=== PATIENT | female | born 1950 ===

== ENCOUNTER → 2018-10-03 | Outpatient (CLI) | payer MEDICARE ==
[~2018-10-03] MED LIST: AMLO10 PO; ASPI81CH PO; ATOR20; Acephen650 MG PR; Anusol-HC 2.5%30 GM PR; Bisac-Evac10 MG PR; CODACE30 PO; DIAZ2; EYE DROPS; FISH OIL 1,0001 EAC1 PO; GABA300 PO; Humalog100 UNIT/1 SC; INSUGL100V SC; LACTULOSE20 GM/30 M PO; LISI20 PO; Lantus100 UNIT/1; METF500 PO; METO5A PO; MICROZIDE12.5 M1 PO; MIRALAX17 GM PO; MUPI2TC TOP; OMEPRAZOLE MAGN20 MG; SENN187 PO; Ultram50 MG PO; XIIDRA1 EACH
[2018-10-03 13:28] LABS: Protein, Urine Quantitative 163.6 mg/dL (0.0-11.9)
== END | disposition home or self-care (01) ==
LOC: LAB SHORT 10:39 → LAB 10:39
PROVIDERS: Internal Medicine
DX: N18.3 Chronic kidney disease, stage 3 (moderate) (principal)
CPT/HCPCS: 81050; 84156

== ENCOUNTER 2020-03-10 00:38 | Emergency (ER) | payer MEDICARE ==
[~2020-03-10] VITALS: Ht 160 cm; Wt 136.1 kg
[2020-03-10] MEDS ORDERED: XARELTO20 M1 PO (00:52)
== END 2020-03-10 02:04 | disposition home or self-care (01) ==
LOC: ER 00:38
DX: S09.90XA Unspecified injury of head, initial encounter (principal); I10 Essential (primary) hypertension; E11.9 Type 2 diabetes mellitus without complications; Z88.5 Allergy status to narcotic agent; Z91.048 Other nonmedicinal substance allergy status; Z79.4 Long term (current) use of insulin; Z79.82 Long term (current) use of aspirin; Z79.899 Other long term (current) drug therapy; W22.8XXA Striking against or struck by other objects, initial encounter
CPT/HCPCS: 36415; 70450; 72125; 99284-25; A9270

== ENCOUNTER 2020-11-19 17:25 | Emergency (ER) | payer MEDICARE ==
[~2020-11-19] VITALS: Ht 160 cm; Wt 93.0 kg
[~2020-11-19 17:25] MED LIST changes: +XARELTO20 M1 PO
[2020-11-19] MEDS ORDERED: OZEMPIC0.25 MG/0. SQ (18:20)
== END 2020-11-19 19:24 | disposition home or self-care (01) ==
LOC: ER 17:25
DX: S09.90XA Unspecified injury of head, initial encounter (principal); I10 Essential (primary) hypertension; Z88.5 Allergy status to narcotic agent; Z91.09 Other allergy status, other than to drugs and biological substances; Z79.4 Long term (current) use of insulin; Z79.01 Long term (current) use of anticoagulants; W18.2XXA Fall in (into) shower or empty bathtub, initial encounter; Y93.E1 Activity, personal bathing and showering; Y92.002 Bathroom of unspecified non-institutional (private) residence as the place of occurrence of the external cause
CPT/HCPCS: 70450; 99283-25; A9270

== ENCOUNTER 2021-04-10 17:56 | Emergency (ER) | payer MEDICARE ==
[~2021-04-10] VITALS: Ht 160 cm; Wt 93.0 kg
[~2021-04-10 17:56] MED LIST changes: +OZEMPIC0.25 MG/0. SQ
[2021-04-10 18:41] LABS: BASOPHILS ABSOLUTE AUTO 0.05 K/mm3 (0.00-0.23); BASOPHILS PERCENT AUTO 0 % (0-2); EOSINOPHILS ABSOLUTE AUTO 0.27 K/mm3 (0.00-0.68); EOSINOPHILS PERCENT AUTO 2 % (0-6); Hematocrit 31.1 % (33.0-51.0); Hemoglobin 10.3 g/dL (11.5-16.0); IMMATURE GRAN ABSOLUTE AUTO 0.02 K/mm3 (0.00-0.10); IMMATURE GRAN PERCENT AUTO 0 % (0-1); LYMPHOCYTES ABSOLUTE AUTO 2.69 K/mm3 (0.84-5.20); LYMPHOCYTES PERCENT AUTO 24 % (21-46); MONOCYTES ABSOLUTE AUTO 0.89 K/mm3 (0.16-1.47); MONOCYTES PERCENT AUTO 8 % (4-13); Mean Corpuscular HGB 36.1 pg (26.0-34.0); Mean Corpuscular HGB Conc 33.1 g/dL (31.5-36.5); Mean Corpuscular Volume 109 fL (80-100); Mean Platelet Volume 9.9 fL (9.1-12.4); NEUTROPHILS ABSOLUTE AUTO 7.37 K/mm3 (1.96-9.15); NEUTROPHILS PERCENT AUTO 65 % (41-73); Platelet Count 327 K/mm3 (150-400); RDW Coefficient Variation 12.6 % (11.7-14.2); RDW Standard Deviation 50.1 fL (35.1-46.3); Red Blood Cell Count 2.85 M/mm3 (3.80-5.20); White Blood Cell Count 11.29 K/mm3 (4.00-11.30)
[2021-04-10 19:03] LABS: Alanine Aminotransfer (ALT/SGP 17 U/L (12-78); Albumin, Blood 3.2 g/dL (3.4-5.0); Albumin/Globulin Ratio 0.8 (0.8-1.8); Alk Phos 101 U/L (50-136); Anion Gap 7 mmol/L (6-16); Aspartate Aminotrans (AST/SGOT 14 U/L (12-37); Bilirubin, Total 0.2 mg/dL (0.1-1.0); Blood Urea Nitrogen 44 mg/dL (8-24); Bun/Creatinine Ratio 19.4 (12.0-20.0); CO2, Blood 21 mmol/L (21-32); Calcium, Blood 9.4 mg/dL (8.5-10.1); Chloride, Blood 112 mmol/L (98-108); Creatinine, Blood 2.27 mg/dL (0.40-1.00); Glomerular Filtration Rate 23 (60-); Glucose, Blood 93 mg/dL (70-99); Potassium, Blood 4.5 mmol/L (3.5-5.5); Sodium, Blood 140 mmol/L (136-145); Total Protein, Blood 7.2 g/dL (6.4-8.2); Troponin I <0.015 ng/mL (0.000-0.040)
== END 2021-04-10 21:24 | disposition home or self-care (01) ==
LOC: ER 17:56
PROVIDERS: Physician Assistant
DX: J98.01 Acute bronchospasm (principal); R47.9 Unspecified speech disturbances; I10 Essential (primary) hypertension; Z79.4 Long term (current) use of insulin; Z79.01 Long term (current) use of anticoagulants; Z79.82 Long term (current) use of aspirin; Z79.899 Other long term (current) drug therapy; Z88.5 Allergy status to narcotic agent; Z91.09 Other allergy status, other than to drugs and biological substances
CPT/HCPCS: 36415; 70450; 71046; 80053; 84484; 85025; 85379; 93005; 93010; 94640; 94664; 99285-25; A9270

== ENCOUNTER 2022-11-14 00:03 | Observation (INO) | payer MEDICARE ==
[~2022-11-14] VITALS: Ht 160 cm; Wt 90.0 kg
[~2022-11-14 00:03] MED LIST changes: +BASAGLAR K100 UNIT/3 SC; +HUMALOG100 UNIT/1 SC; -Humalog100 UNIT/1 SC; -INSUGL100V SC
[2022-11-14 00:39] LABS: BASOPHILS ABSOLUTE AUTO 0.02 K/mm3 (0.00-0.23); BASOPHILS PERCENT AUTO 0 % (0-2); EOSINOPHILS ABSOLUTE AUTO 0.12 K/mm3 (0.00-0.68); EOSINOPHILS PERCENT AUTO 1 % (0-6); Hematocrit 18.7 % (33.0-51.0); Hemoglobin 6.4 g/dL (11.5-16.0); IMMATURE GRAN ABSOLUTE AUTO 0.04 K/mm3 (0.00-0.10); IMMATURE GRAN PERCENT AUTO 0 % (0-1); LYMPHOCYTES ABSOLUTE AUTO 3.55 K/mm3 (0.84-5.20); LYMPHOCYTES PERCENT AUTO 27 % (21-46); MONOCYTES ABSOLUTE AUTO 0.82 K/mm3 (0.16-1.47); MONOCYTES PERCENT AUTO 6 % (4-13); Mean Corpuscular HGB 37.2 pg (26.0-34.0); Mean Corpuscular HGB Conc 34.2 g/dL (31.5-36.5); Mean Corpuscular Volume 109 fL (80-100); Mean Platelet Volume 10.3 fL (9.1-12.4); NEUTROPHILS ABSOLUTE AUTO 8.86 K/mm3 (1.96-9.15); NEUTROPHILS PERCENT AUTO 66 % (41-73); Platelet Count 275 K/mm3 (150-400); RDW Coefficient Variation 12.8 % (11.7-14.2); RDW Standard Deviation 49.8 fL (35.1-46.3); Red Blood Cell Count 1.72 M/mm3 (3.80-5.20); White Blood Cell Count 13.41 K/mm3 (4.00-11.30)
[2022-11-14 01:08] LABS: Albumin, Blood 2.6 g/dL (3.4-5.0); Albumin/Globulin Ratio 0.9 (0.8-1.8); Bilirubin, Total 0.3 mg/dL (0.1-1.0); Bun/Creatinine Ratio 37.5 (12.0-20.0); Calcium, Blood 9.7 mg/dL (8.5-10.1); Creatinine, Blood 3.33 mg/dL (0.40-1.00); Potassium, Blood 3.7 mmol/L (3.5-5.5); Total Protein, Blood 5.6 g/dL (6.4-8.2)
[2022-11-14 02:45] LABS: Source, Urine Voided
[2022-11-14 03:19] LABS: Appearance, Urine Hazy (Clear); Bilirubin, Urine Neg (Neg); Blood, Urine 5+ (Neg); Color, Urine Yellow (P-Yellow); Glucose Qualitative, Urine Neg (Neg); Ketones, Urine Neg (Neg); Leukocyte Esterase, Urine 1+ (Neg); Nitrite, Urine Neg (Neg); Protein, Urine 2+ (Neg); Urobilinogen, Urine NORM (Normal)
[2022-11-14 03:23] LABS: Red Blood Cells, Urine 0-2 /hpf (0-2); Squamous Epithelial Cells Mod /hpf (Few)
[2022-11-14 03:24] LABS: Bacteria Many /hpf
[2022-11-14 04:05] LABS: Source, Urine Straight Cath
[2022-11-14 04:15] LABS: Appearance, Urine Clear (Clear); Bilirubin, Urine Neg (Neg); Blood, Urine Neg (Neg); Color, Urine Yellow (P-Yellow); Glucose Qualitative, Urine Neg (Neg); Ketones, Urine Neg (Neg); Leukocyte Esterase, Urine Neg (Neg); Nitrite, Urine Neg (Neg); Protein, Urine 2+ (Neg); Specific Gravity, Urine 1.015 (1.003-1.022); Urobilinogen, Urine NORM (Normal)
[2022-11-14 04:48] LABS: Bacteria Rare /hpf; Red Blood Cells, Urine 0-2 /hpf (0-2); Squamous Epithelial Cells Mod /hpf (Few); White Blood Cells, Urine 0-2 /hpf (0-5)
[2022-11-14 15:13] LABS: Hematocrit 26.9 % (33.0-51.0); Hemoglobin 9.4 g/dL (11.5-16.0)
[2022-11-14 15:31] LABS: Percent Saturation 104.9 % (15.0-50.0)
[2022-11-14] MEDS ORDERED: ASCO500 PO (15:37)
[2022-11-14] MEDS ORDERED: Vitamin D1000 UNI1 PO (15:37)
[2022-11-14] MEDS ORDERED: Loratadine10 MG PO (15:38)
[2022-11-14] MEDS ORDERED: LISI20 PO (15:39)
--- NOTE | 2022-11-14 16:14 | NUR ---
0807- MD GOMEZ GAVE VERBAL FOR 2 UNITS OF RBCS TO BE INFUSED AND A REPEAT H&H 30 MINS AFTER LAST UNIT IS COMPLETE.
--- NOTE | 2022-11-14 17:52 | NUR ---
SHIFT SUMMARY-PT AAOX4 THIS SHIFT. X1 TO THE BSC. HGB 6.4 THIS AM AND UP TO 9.4 AFTER 2 UNITS RBCS. PT CALLING APPROPRIATELY. DIET ADVANCED FROM NPO TO FULL LIQUID. PT TOLERATING WELL.
[2022-11-15 05:12] LABS: Hematocrit 23.2 % (33.0-51.0); Hemoglobin 8.1 g/dL (11.5-16.0); Mean Corpuscular HGB 34.3 pg (26.0-34.0); Mean Corpuscular HGB Conc 34.9 g/dL (31.5-36.5); Mean Platelet Volume 9.9 fL (9.1-12.4); Platelet Count 199 K/mm3 (150-400); RDW Coefficient Variation 18.6 % (11.7-14.2); RDW Standard Deviation 66.6 fL (35.1-46.3); Red Blood Cell Count 2.36 M/mm3 (3.80-5.20); White Blood Cell Count 10.14 K/mm3 (4.00-11.30)
--- NOTE | 2022-11-15 05:41 | NUR ---
A/OX4; CALM AND COOPERATIVE. SBA TO BSC. DENIED PAIN T/O SHIFT. NO BLOODY STOOLS THIS SHIFT (AND NONE LAST SHIFT PER REPORT). SLEEP PROMOTED. CALL LIGHT IN REACH; ENCOURAGED TO MAKE NEEDS KNOWN. BED ALARM SET.
[2022-11-15 05:47] LABS: Mean Corpuscular Volume 98 fL (80-100)
[2022-11-15 08:14] LABS: Bun/Creatinine Ratio 35.5 (12.0-20.0); Calcium, Blood 9.3 mg/dL (8.5-10.1); Creatinine, Blood 2.93 mg/dL (0.40-1.00); Potassium, Blood 4.9 mmol/L (3.5-5.5)
[2022-11-15 12:48] LABS: Hematocrit 25.4 % (33.0-51.0); Hemoglobin 8.5 g/dL (11.5-16.0)
--- NOTE | 2022-11-15 17:48 | NUR ---
PT AAOX4 THIS SHIFT WITH NO ISSUES. NO BLOODY STOOLS SINCE ADMISSION. SBA TO BSC. PT TO BE NPO AT 0000 TONIGHT FOR GI SCOPE TOMORROW. NO PAIN TODAY.
[2022-11-16 05:07] LABS: Hematocrit 21.4 % (33.0-51.0); Hemoglobin 7.5 g/dL (11.5-16.0); Mean Corpuscular HGB 34.6 pg (26.0-34.0); Mean Corpuscular Volume 99 fL (80-100); Mean Platelet Volume 10.2 fL (9.1-12.4); Platelet Count 190 K/mm3 (150-400); RDW Coefficient Variation 17.4 % (11.7-14.2); RDW Standard Deviation 62.9 fL (35.1-46.3); Red Blood Cell Count 2.17 M/mm3 (3.80-5.20); White Blood Cell Count 7.26 K/mm3 (4.00-11.30)
[2022-11-16 05:35] LABS: Bun/Creatinine Ratio 31.3 (12.0-20.0); Calcium, Blood 9.5 mg/dL (8.5-10.1); Creatinine, Blood 2.68 mg/dL (0.40-1.00); Potassium, Blood 5.1 mmol/L (3.5-5.5)
--- NOTE | 2022-11-16 09:00 | NUR ---
PT SHARON GOINS A/O. 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 H/R REG, NO MURMUR NOTED. NO EDEMA NOTED. LUNGS CLEAR, RESP EASY, UNLABORED. ON R.A. BT X4 LAST BM COUPLE DAYS. PRESENTLY NPO FOR ENDOSCOPY THIS AFT. ICE OKAY UNTIL 1100. VOIDS BSC. 1 ASST. BED IN LOW POSITION, CALL LITE IN REACH, CALLS APPROP
--- NOTE | 2022-11-16 11:00 | NUR ---
1100 PT FULLY NPO AT 1100.
--- NOTE | 2022-11-16 12:55 | NUR ---
TO DAY SURG AT THIS TIME.
--- NOTE | 2022-11-16 14:37 | NUR ---
1437 PT RETURNED TO ROOM FROM SCOPE. RN STATES DR ARIANNE DIAZED FOOD NOW. WILL MAKE ORDRES. STATES NO CURRENT BLEEDING FROM [facility].
--- NOTE | 2022-11-16 14:46 | NUR ---
11/16/22 1446 Sarbjit Bellamy HISTORY, CHART, MEDICATIONS AND ALLERGIES REVIEWED BEFORE START OF PROCEDURE. PATIENT CONFIRMS NPO STATUS AND AGREES WITH SCHEDULED PROCEDURE. 3-LEAD EKG REVIEWED WITH PHYSICIAN PRIOR TO START OF PROCEDURE. MONITOR INTACT WITH CONTINUOUS PULSE OXIMETRY,CAPNOGRAPHY, 3-LEAD EKG, INTERMITTENT BP. SUPPLEMENTAL O2 TO BE TITRATED THROUGHOUT PROCEDURE TO MAINTAIN O2 SATURATION ABOVE 90%. PATIENT DETERMINED TO BE ASA APPROPRIATE FOR PROPOFOL SEDATION PRIOR TO START OF PROCEDURE BY
--- NOTE | 2022-11-16 17:48 | NUR ---
CALLED DR JASON CUMMINS LOW DIASTOLIC BP. ORDERS FOR 500 NS BOLUS. DONE.
--- NOTE | 2022-11-16 18:21 | NUR ---
PT HAD SCOPE TODAY. NO CONCERNS NOTED. RN STATES DR SAID NO CURRENT BLEEDING. OKAYED DIET TODAY. PT LAURA WELL. SOFT DIASTOLIC BP. DISCUSSED WITH DR GOMEZ, 500 BOLUS ORDERED AND ADMIN. WILL MONITOR BP. PT CONTINUES TO BE PLEASANT AND TALKATIVE. NO OTHER CONCERNS NOTED. BED IN LOW POSITION, CALL LITE IN REACH, CALLS APPROP
[2022-11-17 04:57] LABS: Hematocrit 23.8 % (33.0-51.0); Hemoglobin 8.1 g/dL (11.5-16.0); Mean Corpuscular HGB 33.9 pg (26.0-34.0); Mean Corpuscular Volume 100 fL (80-100); Mean Platelet Volume 10.3 fL (9.1-12.4); Platelet Count 215 K/mm3 (150-400); RDW Coefficient Variation 16.9 % (11.7-14.2); RDW Standard Deviation 61.3 fL (35.1-46.3); Red Blood Cell Count 2.39 M/mm3 (3.80-5.20); White Blood Cell Count 8.88 K/mm3 (4.00-11.30)
[2022-11-17 05:21] LABS: Bun/Creatinine Ratio 23.9 (12.0-20.0); Calcium, Blood 9.4 mg/dL (8.5-10.1); Creatinine, Blood 2.68 mg/dL (0.40-1.00); Potassium, Blood 4.8 mmol/L (3.5-5.5)
[2022-11-17] MEDS ORDERED: OMEP20ER PO (11:13)
--- NOTE | 2022-11-17 13:06 | NUR ---
pt discharge reviewed with pt . she verbalized understanding meds and inst. iv x2 removed intact. no tele. daughter here to take home. pt wheeled to door by aide at 1225
== END 2022-11-17 12:59 | disposition home or self-care (01) ==
LOC: ER 00:03 → MEDS 06:05
PROVIDERS: Emergency Medicine; Internal Medicine; ADMIT Internal Medicine
DX: D64.9 Anemia, unspecified (principal); K26.9 Duodenal ulcer, unspecified as acute or chronic, without hemorrhage or perforation; K29.50 Unspecified chronic gastritis without bleeding; K31.A19 Gastric intestinal metaplasia without dysplasia, unspecified site; N17.9 Acute kidney failure, unspecified; K59.00 Constipation, unspecified; R42 Dizziness and giddiness; I12.9 Hypertensive chronic kidney disease with stage 1 through stage 4 chronic kidney disease, or unspecified chronic kidney disease; E11.22 Type 2 diabetes mellitus with diabetic chronic kidney disease; N18.9 Chronic kidney disease, unspecified; Z86.718 Personal history of other venous thrombosis and embolism; Z88.5 Allergy status to narcotic agent; Z88.8 Allergy status to other drugs, medicaments and biological substances; Z79.01 Long term (current) use of anticoagulants; Z79.82 Long term (current) use of aspirin; Z79.899 Other long term (current) drug therapy
CPT/HCPCS: 36415; 36430; 51701; 70450; 80048; 80053; 81001; 82272; 82607; 82728; 82746; 82947; 83540; 83550; 83605; 84484; 85014; 85018; 85025; 85027; 86850; 86900; 86901; 86923; 87086; 90686; 93005; 93010; 96361-59; 96374-59; 96375-59; 99285-25; A9270; C9113; J1815; J2550; J2704; J7030; J7040; J7120; P9016

== ENCOUNTER 2022-12-02 22:16 | Emergency (ER) | payer MEDICARE ==
[~2022-12-02] VITALS: Ht 160 cm; Wt 87.1 kg
[~2022-12-02 22:16] MED LIST changes: +ASCO500 PO; +Loratadine10 MG PO; +OMEP20ER PO; +Vitamin D1000 UNI1 PO
[2022-12-02 22:47] LABS: Source, Urine Clean Catch
[2022-12-02 22:49] LABS: Bilirubin, Urine Neg (Neg); Blood, Urine Neg (Neg); Glucose Qualitative, Urine Neg (Neg); Ketones, Urine Neg (Neg); Leukocyte Esterase, Urine 1+ (Neg); Nitrite, Urine Neg (Neg); Protein, Urine 3+ (Neg); Specific Gravity, Urine 1.015 (1.003-1.022); Urobilinogen, Urine NORM (Normal)
[2022-12-02 22:55] LABS: Appearance, Urine Hazy (Clear); Bacteria Few /hpf; Color, Urine Yellow (P-Yellow); Red Blood Cells, Urine Not Seen /hpf (0-2); Squamous Epithelial Cells Many /hpf (Few); White Blood Cells, Urine 0-2 /hpf (0-5)
[2022-12-02 23:13] LABS: BASOPHILS ABSOLUTE AUTO 0.03 K/mm3 (0.00-0.23); BASOPHILS PERCENT AUTO 0 % (0-2); EOSINOPHILS ABSOLUTE AUTO 0.07 K/mm3 (0.00-0.68); EOSINOPHILS PERCENT AUTO 1 % (0-6); Hematocrit 27.9 % (33.0-51.0); Hemoglobin 9.8 g/dL (11.5-16.0); IMMATURE GRAN ABSOLUTE AUTO 0.04 K/mm3 (0.00-0.10); IMMATURE GRAN PERCENT AUTO 0 % (0-1); LYMPHOCYTES ABSOLUTE AUTO 1.67 K/mm3 (0.84-5.20); LYMPHOCYTES PERCENT AUTO 17 % (21-46); MONOCYTES PERCENT AUTO 7 % (4-13); Mean Corpuscular HGB Conc 35.1 g/dL (31.5-36.5); Mean Corpuscular Volume 100 fL (80-100); Mean Platelet Volume 9.6 fL (9.1-12.4); NEUTROPHILS ABSOLUTE AUTO 7.17 K/mm3 (1.96-9.15); NEUTROPHILS PERCENT AUTO 74 % (41-73); Platelet Count 309 K/mm3 (150-400); RDW Coefficient Variation 16.1 % (11.7-14.2); RDW Standard Deviation 59.4 fL (35.1-46.3); White Blood Cell Count 9.68 K/mm3 (4.00-11.30)
[2022-12-02 23:31] LABS: Albumin, Blood 3.2 g/dL (3.4-5.0); Albumin/Globulin Ratio 0.8 (0.8-1.8); Bilirubin, Total 0.2 mg/dL (0.1-1.0); Bun/Creatinine Ratio 17.1 (12.0-20.0); Calcium, Blood 9.3 mg/dL (8.5-10.1); Creatinine, Blood 2.69 mg/dL (0.40-1.00); Potassium, Blood 4.3 mmol/L (3.5-5.5); Total Protein, Blood 7.2 g/dL (6.4-8.2)
[2022-12-02] MEDS ORDERED: MECL25 PO (23:57)
== END 2022-12-03 02:05 | disposition home or self-care (01) ==
LOC: ER 22:16
PROVIDERS: Emergency Medicine
DX: R42 Dizziness and giddiness (principal); K92.2 Gastrointestinal hemorrhage, unspecified; E87.1 Hypo-osmolality and hyponatremia; Z88.5 Allergy status to narcotic agent; Z88.8 Allergy status to other drugs, medicaments and biological substances; Z91.048 Other nonmedicinal substance allergy status; Z79.899 Other long term (current) drug therapy; Z79.4 Long term (current) use of insulin; E11.9 Type 2 diabetes mellitus without complications; I10 Essential (primary) hypertension; Z87.891 Personal history of nicotine dependence
CPT/HCPCS: 36415; 80053; 81001; 82947; 84484; 85025; 86850; 86900; 86901; 93005; 93010; 96360; 99284-25; A9270; J7030

== ENCOUNTER → 2023-01-01 | Outpatient (CLI) | payer MEDICARE ==
[~2023-01-01] MED LIST changes: +MECL25 PO
== END | disposition home or self-care (01) ==
LOC: LAB SHORT 16:30
DX: A04.8 Other specified bacterial intestinal infections (principal)
CPT/HCPCS: 87338

== ENCOUNTER 2023-01-17 13:05 | Emergency (ER) | payer MEDICARE ==
[~2023-01-17] VITALS: Ht 160 cm; Wt 82.1 kg
== END 2023-01-17 15:41 | disposition home or self-care (01) ==
LOC: ER 13:05
DX: M79.671 Pain in right foot (principal); I10 Essential (primary) hypertension; E11.9 Type 2 diabetes mellitus without complications; Z91.048 Other nonmedicinal substance allergy status; Z88.5 Allergy status to narcotic agent; Z79.899 Other long term (current) drug therapy; Z79.4 Long term (current) use of insulin; Z86.718 Personal history of other venous thrombosis and embolism; Z87.891 Personal history of nicotine dependence
CPT/HCPCS: 93971; 99283-25

== ENCOUNTER 2023-06-25 13:14 | Emergency (ER) | payer MEDICARE ==
[~2023-06-25] VITALS: Ht 160 cm; Wt 93.0 kg
[~2023-06-25 13:14] MED LIST changes: -OZEMPIC0.25 MG/0. SQ; +OZEMPIC0.25 MG/02 SC
[2023-06-25 15:20] LABS: BASOPHILS ABSOLUTE AUTO 0.04 K/mm3 (0.00-0.23); BASOPHILS PERCENT AUTO 1 % (0-2); EOSINOPHILS ABSOLUTE AUTO 0.24 K/mm3 (0.00-0.68); EOSINOPHILS PERCENT AUTO 3 % (0-6); Hematocrit 32.1 % (33.0-51.0); IMMATURE GRAN ABSOLUTE AUTO 0.03 K/mm3 (0.00-0.10); IMMATURE GRAN PERCENT AUTO 0 % (0-1); LYMPHOCYTES ABSOLUTE AUTO 1.57 K/mm3 (0.84-5.20); LYMPHOCYTES PERCENT AUTO 21 % (21-46); MONOCYTES ABSOLUTE AUTO 0.58 K/mm3 (0.16-1.47); MONOCYTES PERCENT AUTO 8 % (4-13); Mean Corpuscular HGB 35.6 pg (26.0-34.0); Mean Corpuscular HGB Conc 34.3 g/dL (31.5-36.5); Mean Corpuscular Volume 104 fL (80-100); Mean Platelet Volume 9.9 fL (9.1-12.4); NEUTROPHILS ABSOLUTE AUTO 5.12 K/mm3 (1.96-9.15); NEUTROPHILS PERCENT AUTO 68 % (41-73); Platelet Count 261 K/mm3 (150-400); RDW Coefficient Variation 12.6 % (11.7-14.2); RDW Standard Deviation 47.2 fL (35.1-46.3); Red Blood Cell Count 3.09 M/mm3 (3.80-5.20); White Blood Cell Count 7.58 K/mm3 (4.00-11.30)
[2023-06-25 15:39] LABS: Albumin, Blood 2.3 g/dL (3.4-5.0); Albumin/Globulin Ratio 0.6 (0.8-1.8); Bilirubin, Total 0.2 mg/dL (0.1-1.0); Bun/Creatinine Ratio 14.7 (12.0-20.0); Calcium, Blood 8.2 mg/dL (8.5-10.1); Creatinine, Blood 4.3 mg/dL (0.40-1.00); Potassium, Blood 4.2 mmol/L (3.5-5.5); Total Protein, Blood 6.3 g/dL (6.4-8.2)
[2023-06-25 16:43] LABS: Source, Urine Clean Catch
[2023-06-25 16:48] LABS: Appearance, Urine Clear (Clear); Bilirubin, Urine Neg (Neg); Blood, Urine 1+ (Neg); Glucose Qualitative, Urine 2+ (Neg); Ketones, Urine Neg (Neg); Leukocyte Esterase, Urine Neg (Neg); Nitrite, Urine Neg (Neg); Protein, Urine 4+ (Neg); Specific Gravity, Urine 1.015 (1.003-1.022); Urobilinogen, Urine NORM (Normal)
[2023-06-25 17:07] LABS: Color, Urine Pale Yellow (P-Yellow)
[2023-06-25 17:10] LABS: Bacteria Mod /hpf; Squamous Epithelial Cells Few /hpf (Few)
[2023-06-25] MEDS ORDERED: LINZESS72 MCG PO (18:11)
[2023-06-25] MEDS ORDERED: FUROSEMIDE20 MG PO (18:11)
[2023-06-25 20:42] LABS: Influenza A, PCR NEGATIVE (NEGATIVE); Influenza B, PCR NEGATIVE (NEGATIVE); Resp Syncytial Virus, PCR NEGATIVE (NEGATIVE); SARS-Cov-2 (COVID-19) PCR, MMC NEGATIVE (NEGATIVE)
[2023-06-25] MEDS ORDERED: CEPH500 PO (21:47)
[2023-06-25 22:30] VITALS: BP 145/54
== END 2023-06-25 22:30 | disposition home or self-care (01) ==
LOC: ER 13:14
PROVIDERS: Emergency Medicine; Student in an Organized Health Care Education/Training Program
DX: N39.0 Urinary tract infection, site not specified (principal); E11.9 Type 2 diabetes mellitus without complications; I10 Essential (primary) hypertension; Z87.891 Personal history of nicotine dependence
CPT/HCPCS: 0241U; 74176; 80053; 81001; 85025; 87086; 93005; 93010; 96365; 99285-25; J0696

== ENCOUNTER 2023-07-03 07:04 | Day surgery (SDC) | payer MEDICARE ==
[2023-07-03] VITALS (12 sets, daily range): BP systolic 134–186; BP diastolic 59–83
[~2023-07-03] VITALS: Ht 160 cm; Wt 94.0 kg
[~2023-07-03 07:04] MED LIST changes: +CEPH500 PO; +FUROSEMIDE20 MG PO; +LINZESS72 MCG PO
--- NOTE | 2023-07-03 07:35 | NUR ---
Ambulatory in Day Surgery History, Chart, Medications and Allergies reviewed before start of procedure.Lungs clear T/O to Auscultation. Patient confirms NPO status and agrees with scheduled surgery. Patient reports completing Chlorhexadine shower X2 prior to admission to hospital.Surgical site prepped with 2% Chlorhexidine cloth wipe. Patient States Post-Procedure ride home has been arranged.
--- NOTE | 2023-07-03 11:08 | NUR ---
Patient up to Ambulate independently. Gait steady. Discharge instructions reviewed with patient. Patient verbalizes understanding. Copy given to patient to take home. Dressing to procedure site clean, dry, intact with no visible drainage, swelling, erythema or bruising noted. Patient States Post-Procedure ride home has been arranged with granddaughter Denise. Discharged via wheelchair to private car for ride home.
== END 2023-07-03 23:00 | disposition home or self-care (01) ==
LOC: ORSCMMR 07:04 → ORD 08:30 → ORSCMMR 23:00
PROVIDERS: Surgery
PROC: 05HM33Z Insertion of Infusion Device into Right Internal Jugular Vein, Percutaneous Approach (ICD-10-PCS; principal; 2023-07-03 08:30)
PROC: B543ZZA Ultrasonography of Right Jugular Veins, Guidance (ICD-10-PCS; principal; 2023-07-03 08:30)
PROC: 0JH63XZ Insertion of Tunneled Vascular Access Device into Chest Subcutaneous Tissue and Fascia, Percutaneous Approach (ICD-10-PCS; principal; 2023-07-03 08:30)
DX: I12.0 Hypertensive chronic kidney disease with stage 5 chronic kidney disease or end stage renal disease (principal); K63.1 Perforation of intestine (nontraumatic); E11.22 Type 2 diabetes mellitus with diabetic chronic kidney disease; I10 Essential (primary) hypertension; E66.9 Obesity, unspecified; Z68.36 Body mass index [BMI] 36.0-36.9, adult; E03.9 Hypothyroidism, unspecified; J45.909 Unspecified asthma, uncomplicated; Z79.899 Other long term (current) drug therapy
CPT/HCPCS: 77001; 82947; C1750; J0690; J1100; J1644; J2250; J2405; J2704; J3010; J7030